=== PATIENT | male | born 1960 | race Caucasian/White ===

== ENCOUNTER 2017-01-25 16:49 | Emergency (ER) | payer BC, OTHER ==
[2017-01-25 16:59] VITALS: TEMP 97.5
[2017-01-25] MEDS ORDERED: ALUMINUM & MAGNESIUM HYDROXIDE 30 ML UD PO ONE (17:20)
[2017-01-25] MEDS ORDERED: ASPIRIN TABLET 325 MG TAB PO ONE (17:20)
--- NOTE | 2017-01-25 17:42 | RAD ---
EXAM: Chest,2 Views CLINICAL INDICATION: 56-year-old male with chest pain and shortness of breath. TECHNIQUE: Two-view, PA and lateral projections of the chest were obtained. COMPARISON: 07/23/2014. FINDINGS: Stable cardiac and mediastinal silhouette. Heart size and wall normal. Tortuous thoracic aorta. Lungs are clear without focal opacity, pneumothorax or pleural effusions. The visualized bones are within normal limits. IMPRESSION: No acute cardiopulmonary abnormalities. Electronically signed by: Mirna Lara MD 01/25/2017 5:41 PM CDT Workstation: [id number]
--- NOTE | 2017-01-25 20:43 | ED.PDOC ---
History of Present Illness - General Chief Complaint: Chest Pain/RI Stated Complaint: chest pain Time Seen by Provider: 01/25/17 17:15 Source: patient Exam Limitations: no limitations - History of Present Illness Initial Comments: The patient is a 56-year-old male presenting to the emergency room secondary to symptoms of left-sided chest pain that radiated up to his left shoulder and arm. 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 He has not had chest pain with stressful activity. He was not short of breath but he did feel a little bit dizzy. Chest pain resolved within about 20 minutes of arrival here. No syncope. No palpitations. No productive cough. No fever. Chest pain is a little worse with movement. The patient does smoke. I was unable to reproduce the chest pain with palpation. Timing/Duration: 1/2 hour Severity: moderate Improving Factors: nothing Worsening Factors: movement Associated Symptoms: chest pain, malaise Allergies/Adverse Reactions: Allergies NO KNOWN ALLERGY Allergy (Verified 01/25/17 16:59) Home Medications: Ambulatory Orders Cetirizine HCl [Zyrtec] 10 mg PO DAILY 09/01/14 Trazodone HCl 50 mg PO BEDTIME 09/01/14 Ciprofloxacin [Cipro] 500 mg PO BID #28 tab 11/04/14 Tramadol HCl 50 mg PO BEDTIME PRN #10 tab 11/04/14 metroNIDAZOLE [Flagyl] 500 mg PO Q6HRS #56 tab 11/04/14 Famotidine 20 mg PO DAILY #30 tab 01/25/17 Review of Systems - Review of Systems Constitutional: States: malaise EENTM: States: no symptoms reported Respiratory: States: no symptoms reported Cardiology: States: chest pain Gastrointestinal/Abdominal: States: no symptoms reported Genitourinary: States: no symptoms reported Musculoskeletal: States: see HPI Skin: States: no symptoms reported Neurological: States: tingling Endocrine: States: no symptoms reported All other Systems: No Change from Baseline Past Medical History (General) - Patient Medical History Hx Congestive Heart Failure: No Hx Diabetes: No Surgical History: no surgical history - Vaccination History Hx Influenza Vaccination: No Hx Pneumococcal Vaccination: No - Social History Hx Tobacco Use: Yes - Uses E-cigs Hx Alcohol Use: No Hx Substance Use: No Hx Substance Use Treatment: No Hx Depression: No - Activities of Daily Living Hospice Agency (if applicable):: None - Female History Patient is a Female of Child Bearing Age (10 -59 yrs old): No Patient : No Family Medical History - Family History Father Family History: Unknown Living Status: Hx Family Cancer: Yes Physical Exam - Physical Exam General Appearance: Alert, Anxious, No apparent distress Eye Exam: bilateral normal Ears, Nose, Throat: hearing grossly normal, normal ENT inspection, normal pharynx Neck: non-tender, full range of motion, supple, normal inspection Respiratory: chest non-tender, lungs clear, normal breath sounds, no respiratory distress, no accessory muscle use Cardiovascular/Chest: normal peripheral pulses, regular rate, rhythm, no edema Peripheral Pulses: radial,right: 2+, radial,left: 2+, dorsalis pedis,right: 2+, dorsalis pedis,left: 2+ Gastrointestinal/Abdominal: non tender, soft Rectal Exam: deferred Back Exam: normal inspection, no CVA tenderness, no vertebral tenderness Extremity: normal range of motion, non-tender, normal inspection, no pedal edema , normal capillary refill 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 Source of the chest pain is uncertain at this time. The patient has not had a heart attack. Chest pain resolved soon after arrival. EKG, chest x-ray and lab work are reassuring. I'm going to empirically place the patient on an enteric-coated 81 mg aspirin daily along with Pepcid 20 mg daily for the next month. The patient needs to keep well- hydrated. I want him to get set up with his primary care doctor to perform an exercise tolerance test. He does need to reduce his smoking. ER warnings were given for any significant recurrence or worsening. - Results/Orders Results/Orders: Laboratory Tests 01/25/17 01/25/17 01/25/17 17:25 17:25 17:25 WBC 10.0 RBC 4.32 L Hgb 13.9 L Hct 42.0 MCV 97.3 H MCH 32.1 H MCHC 33.1 RDW 12.7 Plt Count 306 MPV 9.5 Absolute Neuts (auto) 5.50 Absolute Lymphs (auto) 3.30 Absolute Monos (auto) 0.70 Absolute Eos (auto) 0.40 Absolute Basos (auto) 0.10 Neutrophils % 55.3 Lymphocytes % 32.9 Monocytes % 6.7 Eosinophils % 4.2 Basophils % 0.9 PT 9.9 INR 0.870 PTT (SP) 28.0 D-Dimer, Quantitative < 200 Sodium 139 Potassium 3.7 Chloride 108 Carbon Dioxide 23 Anion Gap 11.7 L BUN 13 Creatinine 0.83 BUN/Creatinine Ratio 15.7 Random Glucose 103 Serum Osmolality 277.9 Calcium 9.5 Magnesium Total Bilirubin 1.1 H AST 17 ALT 17 Alkaline Phosphatase 61 Creatine Kinase 79 CK-MB (CK-2) 1.5 CK-MB (CK-2) % Not Reportable Troponin I < 0.02 B-Natriuretic Peptide 18.0 Serum Total Protein 6.9 Albumin 4.5 Globulin 2.4 Albumin/Globulin Ratio 1.9 01/25/17 01/25/17 17:25 20:05 WBC RBC Hgb Hct MCV MCH MCHC RDW Plt Count MPV Absolute Neuts (auto) Absolute Lymphs (auto) Absolute Monos (auto) Absolute Eos (auto) Absolute Basos (auto) Neutrophils % Lymphocytes % Monocytes % Eosinophils % Basophils % PT INR PTT (SP) D-Dimer, Quantitative Sodium Potassium Chloride Carbon Dioxide Anion Gap BUN Creatinine BUN/Creatinine Ratio Random Glucose Serum Osmolality Calcium Magnesium 2.0 Total Bilirubin AST ALT Alkaline Phosphatase Creatine Kinase 68 CK-MB (CK-2) CK-MB (CK-2) % Troponin I < 0.02 B-Natriuretic Peptide Serum Total Protein Albumin Globulin Albumin/Globulin Ratio EKG shows normal sinus rhythm. Normal QT intervals. Normal R wave progression. Mild left axis deviation. No acute ST segment changes concerning for ischemia. Chest x-ray showed no evidence of fluid overload, pneumothorax or infiltrate. he does have a tortuous thoracic aorta. Departure - Departure Clinical Impression: Chest pain Qualifiers: Chest pain type: unspecified Qualified Code(s): R07.9 - Chest pain, unspecified Disposition: Discharge to Home or Self Care Condition: Fair Departure Forms: ED Discharge - Pt. Copy, Patient Portal Self Enrollment Instructions: Smoking Cessation for Older Adults: It's Not Too Late! Diet: low salt diet Activity: increase activity as tolerated Prescriptions: Famotidine 20 mg PO DAILY #30 tab Home Medications: Ambulatory Orders Cetirizine HCl [Zyrtec] 10 mg PO DAILY 09/01/14 Trazodone HCl 50 mg PO BEDTIME 09/01/14 Ciprofloxacin [Cipro] 500 mg PO BID #28 tab 11/04/14 Tramadol HCl 50 mg PO BEDTIME PRN #10 tab 11/04/14 metroNIDAZOLE [Flagyl] 500 mg PO Q6HRS #56 tab 11/04/14 Famotidine 20 mg PO DAILY #30 tab 01/25/17 Additional Instructions: the patient is a 56-year-old male presenting to the emergency room secondary to an episode of chest pain. Source of the chest pain is uncertain at this time. The patient has not had a heart attack. Chest pain resolved soon after arrival. EKG, chest x-ray and lab work are reassuring. I'm going to empirically place the patient on an enteric-coated 81 mg aspirin daily along with Pepcid 20 mg daily for the next month. The patient needs to keep well- hydrated. I want him to get set up with his primary care doctor to perform an exercise tolerance test. He does need to reduce his smoking. ER warnings were given for any significant recurrence or worsening.
[2017-01-25 21:37] VITALS: BP 103/67; O2SAT 98
== END 2017-01-25 21:25 | disposition home or self-care (01) ==
LOC: ER 16:49
DX: R07.9 Chest pain, unspecified (principal); Z79.899 Other long term (current) drug therapy; F17.210 Nicotine dependence, cigarettes, uncomplicated

== ENCOUNTER 2020-07-30 13:21 | Emergency (ER) | payer BC, OTHER ==
--- NOTE | 2020-07-30 14:30 | RAD ---
EXAM DESCRIPTION: Elbow,Left 2 Views CLINICAL HISTORY: construction accident COMPARISON: None Available. TECHNIQUE: AP, Lateral x-ray views of the left elbow FINDINGS: Two-view x-ray left elbow shows no fracture or dislocation. No displacement of the distal humeral fat pads. Radial head and capitellum are normally aligned on both views. There is no bone lesion. There are no significant arthritic changes. There is no radiopaque foreign body. IMPRESSION: Negative for fracture. Electronically signed by: Zaki Watson MD 07/30/2020 2:28 PM [facility]
--- NOTE | 2020-07-30 14:33 | CT ---
EXAM DESCRIPTION: Cervical Spine CLINICAL HISTORY: construction accident COMPARISON: None Available. TECHNIQUE: Cervical CT is performed with thin-section axial imaging. MPRs are created and reviewed as well. FINDINGS: Axial bone window images reveal intact ring of C1. No abnormal widening of the atlantodens interval. No fracture of the vertebral bodies or transverse processes or posterior elements. Lung apices appear clear. No cervical mass or adenopathy. Sagittal reformatted images show normal alignment of vertebral bodies and facets. No jumped facet or facet fracture. Normal craniocervical alignment. No prevertebral soft tissue swelling. No acute avulsion of the spinous processes. Spondylosis: Sagittal images show advanced disc degeneration with prominent posterior disc/osteophyte complex that C6-C7. Lesser posterior disc/osteophyte complexes at C4-5 and C5-6. Moderate to moderately severe neural foraminal narrowing on the right at C5-6 and C6-7 and on the left at C5-6. Facet spurring is most prominent on the right at C3-4. Coronal reformatted images show normal atlantooccipital and atlantoaxial alignment. The base of the dens is intact as is the body of C2. Intact lateral masses. IMPRESSION: Negative for fracture or posttraumatic subluxation. Degenerative changes as described. This exam was performed according to our departmental dose-optimization program, which includes automated exposure control, adjustment of the mA and/or kV according to patient size and/or use of iterative reconstruction technique. Total DLP equals 1282.73 mGycm. Electronically signed by: Zaki Watson MD 07/30/2020 2:31 PM [facility]
--- NOTE | 2020-07-30 14:35 | CT ---
EXAM DESCRIPTION: CT head without contrast CLINICAL HISTORY: construction accident COMPARISON: None available TECHNIQUE: Noncontrast head CT was performed with routine protocol. FINDINGS: Normal worley-white matter differentiation. Ventricles and sulci are normal for age. No high density hemorrhage, focal edema or shift of the midline. No sulcal effacement. Normal orbital contents. Basilar cisterns appear clear. Intact calvarium with no fracture or lytic lesion. Normal aeration of tympanic cavities and mastoid air cells. No fluid levels in the paranasal sinuses. Skull base appears intact. Symmetrical internal auditory canals. IMPRESSION: No acute intracranial pathologic process. This exam was performed according to our departmental dose-optimization program, which includes automated exposure control, adjustment of the mA and/or kV according to patient size and/or use of iterative reconstruction technique. Total DLP equals 1282.73 mGycm. Electronically signed by: Zaki Watson MD 07/30/2020 2:33 PM [facility]
--- NOTE | 2020-07-30 14:36 | RAD ---
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 FINDINGS: No fracture. No dislocation. Scapula appears intact on AP and transscapular Y views. Proximal humerus and clavicle are included in the field of view and appear intact. Normal glenohumeral alignment. No AC separation. IMPRESSION: Negative for fracture. Electronically signed by: Zaki Watson MD 07/30/2020 2:34 PM [facility]
--- NOTE | 2020-07-30 14:37 | RAD ---
EXAM DESCRIPTION: Shoulder,Left 2 or More Views CLINICAL HISTORY: construction accident COMPARISON: None Available. TECHNIQUE: Two x-ray views of the left shoulder. FINDINGS: There is adequate internal and external rotation. There is no fracture or dislocation. There are no significant degenerative changes observed. AC joint appears intact. No focal bone lesion. IMPRESSION: Negative for fracture or dislocation. Electronically signed by: Zaki Watson MD 07/30/2020 2:35 PM [facility]
--- NOTE | 2020-07-30 14:47 | ED.PDOC ---
History of Present Illness - General Chief Complaint: Trauma Stated Complaint: left shoulder, elbow, and neck pain Time Seen by Provider: 07/30/20 13:42 Source: patient Exam Limitations: no limitations - History of Present Illness Initial Comments: The patient is a 59-year-old male presented emergency room secondary to having an impacted on top of the head with a piece of construction equipment immediately prior to arrival. No loss of consciousness. He did have some dizziness immediately after. No focal neurological changes. He does have some mild pain in his left posterior mid neck area as well as some pain over the left scapula. It did not impact there. He was apparently holding an object in that arm when it occurred. He moves extremities well. No focal neurological changes at this point. He has an abrasion to the crown of the scalp. He is pleasant and cooperative. He denies using any blood thinners. Timing/Duration: momentarily Severity: moderate Improving Factors: nothing Worsening Factors: nothing Associated Symptoms: headaches Allergies/Adverse Reactions: Allergies NO KNOWN ALLERGY Allergy (Verified 07/30/20 13:42) Home Medications: Ambulatory Orders Cetirizine HCl [Zyrtec] 10 mg PO DAILY 09/01/14 Review of Systems - Review of Systems Constitutional: States: malaise EENTM: States: no symptoms reported Respiratory: States: no symptoms reported Cardiology: States: no symptoms reported Gastrointestinal/Abdominal: States: no symptoms reported Genitourinary: States: no symptoms reported Musculoskeletal: States: see HPI Skin: States: see HPI Neurological: States: see HPI Endocrine: States: no symptoms reported All other Systems: No Change from Baseline Past Medical History (General) - Patient Medical History Hx Seizures: No Hx Stroke: No Hx Dementia: No Hx Asthma: No Hx of COPD: No Hx Cardiac Disorders: No Hx Congestive Heart Failure: No Hx Pacemaker: No Hx Hypertension: No Hx Thyroid Disease: No Hx Diabetes: No Hx Gastroesophageal Reflux: No Hx Renal Disease: No Hx Cancer: No Hx of HIV: No Hx Hepatitis C: No Hx MRSA: No Surgical History: no surgical history - Vaccination History Hx Tetanus, Diphtheria Vaccination: No Hx Influenza Vaccination: No Hx Pneumococcal Vaccination: No - Social History Hx Tobacco Use: Yes Hx Alcohol Use: No Hx Substance Use: No Hx Substance Use Treatment: No Hx Depression: No - Female History Patient : No Family Medical History - Family History Father Family History: Unknown Living Status: Hx Family Cancer: Yes Physical Exam - Physical Exam General Appearance: Alert, Comfortable, No apparent distress Eye Exam: bilateral normal Ears, Nose, Throat: hearing grossly normal, normal pharynx Neck: full range of motion, other - See history of present illness. No step-off or deformity. No acute neurological changes otherwise. Respiratory: lungs clear, normal breath sounds, no respiratory distress, no accessory muscle use Cardiovascular/Chest: normal peripheral pulses, no edema, other - Regular rate Peripheral Pulses: radial,right: 2+, radial,left: 2+ Gastrointestinal/Abdominal: non tender, soft Rectal Exam: deferred Back Exam: no CVA tenderness, no vertebral tenderness, other - Mild diffuse tenderness to palpation around the left scapula. Mild discomfort around the left elbow. No deformity. Normal range of motion. 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 He likely sustained a very mild concussion. He needs to avoid overheating or overexerting himself for the next week or 2. He needs to keep himself well-hydrated. He no doubt has myofascial strain secondary to the impact surrounding the cervical spine and left shoulder area. He does need to do stretching and range of motion exercises. 2 Aleve twice daily with food along with Tylenol may help as well. He will likely have intermittent headaches for the next week or 2. Imaging was reassuring. ER warnings are given for any worsening. Keep routine follow-up with primary care doctor. [email or web address] [email or web address] [phone] - Results/Orders Results/Orders: X-ray of the left shoulder, left scapula and left elbow show no evidence of any acute pathology. There are arthritic changes. CT scan of the head and cervical spine without contrast showed no evidence of acute pathology. Again there are arthritic changes in the joints. Departure - Departure Clinical Impression: Acute cervical myofascial strain Qualifiers: Encounter type: initial encounter Qualified Code(s): S16.1XXA - Strain of muscle, fascia and tendon at neck level, initial encounter Concussion Qualifiers: Encounter type: initial encounter Loss of consciousness presence/duration: without LOC Qualified Code(s): S06.0X0A - Concussion without loss of consciousness, initial encounter Disposition: Discharge to Home or Self Care Condition: Fair Departure Forms: ED Discharge - Pt. Copy, Patient Portal Self Enrollment Instructions: DI for Trauma, Concussion, Adult (DC) Diet: regular diet Activity: increase activity as tolerated Referrals: GOLD BROWN [Primary Care Provider] - 1-2 Weeks Home Medications: Ambulatory Orders Cetirizine HCl [Zyrtec] 10 mg PO DAILY 09/01/14 Additional Instructions: The patient is a 59-year-old male presented emergency room after blunt force trauma to the head while working today. He likely sustained a very mild concussion. He needs to avoid overheating or overexerting himself for the next week or 2. He needs to keep himself well-hydrated. He no doubt has myofascial strain secondary to the impact surrounding the cervical spine and left shoulder area. He does need to do stretching and range of motion exercises. 2 Aleve twice daily with food along with Tylenol may help as well. He will likely have intermittent headaches for the next week or 2. Imaging was reassuring. ER warnings are given for any worsening. Keep routine follow-up with primary care doctor.
[2020-07-30 15:06] VITALS: BP 123/75; TEMP 99.2; O2SAT 99
== END 2020-07-30 15:04 | disposition home or self-care (01) ==
LOC: ER 13:21
DX: S06.0X0A Concussion without loss of consciousness, initial encounter (principal); S16.1XXA Strain of muscle, fascia and tendon at neck level, initial encounter; M25.512 Pain in left shoulder; S00.91XA Abrasion of unspecified part of head, initial encounter; W31.89XA Contact with other specified machinery, initial encounter; Y92.9 Unspecified place or not applicable; Y99.0 Civilian activity done for income or pay; Z87.891 Personal history of nicotine dependence